=== PATIENT | female | born 1980 | race Two or more races ===

== ENCOUNTER 2019-05-19 18:26 | Emergency (ER) | payer MEDICAID ==
[~2019-05-19] VITALS: Ht 167.6 cm; Wt 79.4 kg
[~2019-05-19 18:26] MED LIST: TRAM300T15
[2019-05-19] MEDS ORDERED: IOHEXOL 350 MG/ML 100ML IJ ONE (19:04)
[2019-05-19 20:20] VITALS: BP 121/69
[2019-05-19 20:59] LABS: Basophils # (auto) 0 uL; Eosinophils # (auto) 0.1 uL; Hemoglobin 12.7 g/dL (12.2-16.2); Lymphocytes # (auto) 2.2 uL
[2019-05-19 21:00] LABS: Basophils % (auto) 0.5 % (0.0-2.0); Eosinophils % (auto) 1.1 % (0.0-7.0); Hematocrit 39.2 % (36.0-46.0); Lymphocytes % (auto) 27.6 % (10.0-50.0); Mean Corpuscular Hemoglobin 25.7 pg (28.0-32.0); Mean Corpuscular Hgb Conc. 32.3 g/dL (32.0-36.0); Mean Corpuscular Volume 79.6 fL (80.0-100.0); Monocytes # (auto) 0.4 uL; Monocytes % (auto) 5.4 % (0.0-12.0); Neutrophils # (auto) 5.2 uL; Neutrophils % (auto) 65.4 % (37.0-80.0); Platelet Count (auto) 299 10^3/uL (140-450); Red Blood Cells 4.93 10^6/uL (4.0-5.20); Red Cell Distribution Width 14.7 % (11.8-14.3)
[2019-05-19 21:05] LABS: Albumin 3.7 g/dL (3.4-5.0); Calcium 9.1 mg/dL (8.5-10.1); Magnesium 2.6 mg/dL (1.6-2.6); Potassium 3.9 mmol/L (3.5-5.1)
[2019-05-19 21:08] LABS: BUN/Creatinine Ratio 20.5; Bilirubin, Total 0.1 mg/dL (0.2-1.0); Total Protein 7.4 g/dL (6.4-8.2)
== END 2019-05-19 22:54 | disposition home or self-care (01) ==
LOC: ER 18:26
DX: F41.9 Anxiety disorder, unspecified (principal); F43.9 Reaction to severe stress, unspecified; R25.3 Fasciculation; Z98.51 Tubal ligation status
CPT/HCPCS: 36415; 70450; 70486; 80053; 83036; 83735; 85025; 99284; Q9967

== ENCOUNTER 2020-10-13 12:42 | Emergency (ER) | payer MEDICAID ==
[~2020-10-13] VITALS: Ht 167.6 cm; Wt 68.0 kg
[2020-10-13 12:50] VITALS: BP 109/56
== END 2020-10-13 14:23 | disposition home or self-care (01) ==
LOC: ER 12:42
DX: S30.92XD Unspecified superficial injury of abdominal wall, subsequent encounter (principal); Z48.01 Encounter for change or removal of surgical wound dressing; Z98.51 Tubal ligation status; X58.XXXD Exposure to other specified factors, subsequent encounter

== ENCOUNTER 2021-02-27 16:57 | Emergency (ER) | payer MEDICAID ==
[~2021-02-27] VITALS: Ht 167.6 cm; Wt 81.6 kg
[2021-02-27 17:07] VITALS: BP 138/66
== END 2021-02-27 20:49 | disposition left against medical advice (07) ==
LOC: ER 16:57
DX: R51.9 Headache, unspecified (principal); Z53.21 Procedure and treatment not carried out due to patient leaving prior to being seen by health care provider
CPT/HCPCS: 70450; 81025

== ENCOUNTER 2021-09-04 08:51 | Emergency (ER) | payer MEDICAID ==
[~2021-09-04] VITALS: Ht 167.6 cm; Wt 81.6 kg
[2021-09-04 09:37] LABS: Basophils # (auto) 0 10 ^3/uL (0-0.2); Eosinophils # (auto) 0.1 10 ^3/uL (0-0.8); Eosinophils % (auto) 0.9 % (0.0-7.0); Mean Corpuscular Volume 78.4 fL (80.0-100.0); White Blood Cell 6.6 10^3/uL (4.4-10.8)
[2021-09-04 09:41] LABS: Basophils % (auto) 0.2 % (0.0-2.0); Hematocrit 38.3 % (36.0-46.0); Hemoglobin 12.9 g/dL (12.2-16.2); Lymphocytes # (auto) 1.1 10 ^3/uL (0.4-5.4); Lymphocytes % (auto) 17.4 % (10.0-50.0); Mean Corpuscular Hemoglobin 26.5 pg (28.0-32.0); Mean Corpuscular Hgb Conc. 33.8 g/dL (32.0-36.0); Monocytes # (auto) 0.5 10 ^3/uL (0-1.3); Monocytes % (auto) 7.9 % (0.0-12.0); Neutrophils # (auto) 4.8 10 ^3/uL (1.6-8.6); Neutrophils % (auto) 73.6 % (37.0-80.0); Red Blood Cells 4.88 10^6/uL (4.0-5.20); Red Cell Distribution Width 14.7 % (11.8-14.3)
[2021-09-04 10:14] VITALS: BP 112/66
[2021-09-04 10:39] LABS: Albumin 3.4 g/dL (3.4-5.0); Calcium 8.3 mg/dL (8.5-10.1); Potassium 3.6 mmol/L (3.5-5.1)
[2021-09-04 10:43] LABS: BUN/Creatinine Ratio 14.3; Bilirubin, Total 0.2 mg/dL (0.2-1.0); Total Protein 7.2 g/dL (6.4-8.2)
[2021-09-04] MEDS ORDERED: ONDA-144 PO (10:45)
[2021-09-04 11:02] LABS: Urine Bacteria NONE SEEN /hpf (None Seen); Urine Blood Negative /uL (Negative); Urine Mucus FEW (None Seen); Urine Specific Gravity 1.029 (1.001-1.035); Urine WBC 1 /hpf (0 - 5)
== END 2021-09-04 11:30 | disposition home or self-care (01) ==
LOC: ER 08:51
DX: K52.9 Noninfective gastroenteritis and colitis, unspecified (principal); Z79.899 Other long term (current) drug therapy
CPT/HCPCS: 36415; 80053; 81001; 83690; 85025

== ENCOUNTER 2023-05-12 08:02 | Emergency (ER) | payer MEDICAID ==
[~2023-05-12] VITALS: Ht 167.6 cm; Wt 86.9 kg
[~2023-05-12 08:02] MED LIST changes: +ONDA-144 PO
[2023-05-12 08:09] VITALS: BP 114/94; PULSE 90; RESP 18; O2SAT 98
[2023-05-12 09:41] LABS: Eosinophils # (auto) 0.1 10 ^3/uL (0-0.8); Lymphocytes # (auto) 1.6 10 ^3/uL (0.4-5.4); Mean Corpuscular Hgb Conc. 32.1 g/dL (32.0-36.0)
[2023-05-12 09:42] LABS: Basophils # (auto) 0 10 ^3/uL (0-0.2); Basophils % (auto) 0.6 % (0.0-2.0); Eosinophils % (auto) 1.7 % (0.0-7.0); Hematocrit 42.4 % (36.0-46.0); Hemoglobin 13.6 g/dL (12.2-16.2); Lymphocytes % (auto) 22.9 % (10.0-50.0); Mean Corpuscular Hemoglobin 25.8 pg (28.0-32.0); Mean Corpuscular Volume 80.5 fL (80.0-100.0); Monocytes # (auto) 0.3 10 ^3/uL (0-1.3); Neutrophils # (auto) 4.9 10 ^3/uL (1.6-8.6); Neutrophils % (auto) 69.8 % (37.0-80.0); Nucleated Red Blood Cells % 0.1 %; Red Blood Cells 5.27 10^6/uL (4.0-5.20); Red Cell Distribution Width 15.4 % (11.8-14.3)
[2023-05-12 09:48] LABS: Urine Bacteria FEW /hpf (None Seen); Urine Blood 3+ /uL (Negative); Urine Clarity HAZY (Clear); Urine Color Yellow (Yellow); Urine Mucus FEW (None Seen); Urine Protein, UAD 1+ (Negative); Urine Specific Gravity 1.024 (1.001-1.035); Urine Urobilinogen Normal (Negative); Urine WBC 32 /hpf (0 - 5); Urine pH 5.5 (5.0-8.0)
[2023-05-12 10:04] LABS: Alanine Aminotransferase 44 U/L (7-40); Albumin 4.3 g/dL (3.2-4.8); Alkaline Phosphatase 108 U/L (46-116); Anion Gap 6 (5-15); Aspartate Aminotransferase 28 U/L (13-40); BUN/Creatinine Ratio 10.4 (10.0-20.0); Bilirubin, Total 0.3 mg/dL (0.2-1.0); Blood Urea Nitrogen 7 mg/dL (9-23); Calcium 8.9 mg/dL (8.5-10.1); Carbon Dioxide 25 mmol/L (20-30); Chloride 104 mmol/L (98-107); Glucose 201 mg/dL (74-106); Sodium 135 mmol/L (136-145)
[2023-05-12] MEDS ORDERED: CIPR-173 PO (10:19)
[2023-05-12] MEDS ORDERED: CIPROFLOXACIN HCL 500 MG TAB PO SCH (22:00)
== END 2023-05-12 10:29 | disposition home or self-care (01) ==
LOC: ER 08:02
DX: N39.0 Urinary tract infection, site not specified (principal); Z98.890 Other specified postprocedural states; Z79.899 Other long term (current) drug therapy
CPT/HCPCS: 36415; 80053; 81001; 85025; 87086

== ENCOUNTER 2024-01-28 09:38 | Emergency (ER) | payer MEDICAID ==
[~2024-01-28] VITALS: Ht 167.6 cm; Wt 84.9 kg
[~2024-01-28 09:38] MED LIST changes: +CIPR-173 PO
[2024-01-28 10:44] VITALS: BP 123/70; PULSE 62; RESP 18; TEMP 98.3; O2SAT 98
[2024-01-28] MEDS: DOCUSATE SOD 100 MG CAP PO ONE (11:09)
[2024-01-28] MEDS ORDERED: NAPR-746 PO (11:28)
[2024-01-28] MEDS ORDERED: AUG875T PO (11:28)
== END 2024-01-28 11:34 | disposition home or self-care (01) ==
LOC: ER 09:38
DX: H61.22 Impacted cerumen, left ear (principal); R68.84 Jaw pain
CPT/HCPCS: 69210

== ENCOUNTER 2024-08-18 07:17 | Emergency (ER) | payer MEDICAID ==
[~2024-08-18] VITALS: Ht 167.6 cm; Wt 85.9 kg
[~2024-08-18 07:17] MED LIST changes: +AUG875T PO; +NAPR-746 PO
[2024-08-18 07:56] VITALS: BP 142/72; TEMP 98.2
[2024-08-18 07:58] VITALS: PULSE 96; RESP 16; O2SAT 96
[2024-08-18] MEDS ORDERED: PROM1SOL4 PO (08:34)
[2024-08-18] MEDS ORDERED: AZIT-43 PO (08:34)
[2024-08-18] MEDS ORDERED: BENZ100C97 PO (08:34)
[2024-08-18] MEDS ORDERED: GUAI600T78 PO (08:34)
--- NOTE | 2024-08-18 08:34 | ED.PDOC ---
SOB-HPI HPI Comments 44-year-old female with no pertinent MHx presents with a chief complaint of URI symptoms for the last three days. Complains of a productive cough with green phlegm, sore throat, nasal congestion in his not taking medication for the symptoms listed above. 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 Uvula midline. Moist mucous membranes), TMs Normal Neck: Full Range of Motion, Non-Tender, Normal, Normal Inspection Respiratory: Chest Non-Tender, Lungs Clear, No Accessory Muscle Use, No Respiratory Distress, Normal Breath Sounds Cardiovascular: No Edema, No JVD, No Murmur, No Gallop, Normal Peripheral Pulses, Regular Rate/Rhythm Breast Exam: Deferred Gastrointestinal: No Organomegaly, Non Tender, No Pulsatile Mass, Normal Bowel Sounds, Soft Genitalia: Deferred Pelvic: Deferred Rectal: Deferred Extremities: No calf tenderness, Normal capillary refill, Normal inspection, Normal range of motion, Non-tender, No pedal edema Musculoskeletal : Apperance: Normal Neurologic: Alert, No Motor Deficits, Normal Affect, Normal Mood, No Sensory Deficits Cerebellar Function: Normal Reflexes: Normal Skin: Dry, Normal Color, Warm Lymphatic: No Adenopathy Was a procedure done? Was a procedure done?: No Differential Dx Differential Diagnosis: Bronchitis, URI X-Ray, Labs, Meds, VS Vital Signs Date Time Temp Pulse Resp B/P (MAP) Pulse Ox O2 Delivery O2 Flow Rate FiO2 08/18/24 07:58 96 16 96 Room Air 08/18/24 07:56 98.2 87 20 142/72 (95) 97 98.2 08/18/24 07:38 16 96 Room Air* 0 21 08/18/24 07:35 97.9 96 16 126/48 (74) 96 X-Ray, Labs, Meds, VS Comment After ROS and physical examination patient agreed to empiric treatment. Patient is stable for discharge at this time. External notes reviewed. Test results and diagnostic imaging interpreted. All diagnostic findings, discharge care, education and instructions provided Follow-up with PCP in 2 to 3 days Patient verbalized understanding and agreed to treatment plan Vital signs stable, afebrile, no acute distress noted Patient ambulatory with strong steady gait Advised to return precautions for any new or worsening symptoms, return to ER immediately for re-evaluation Patient is aware that the purpose of this visit was for an acute medical emergency requiring emergent stabilization. Chronic conditions, including malignancies have not been ruled out. Patient is instructed to follow up with PCP as directed and discharge instructions for continued care and workup. If unable to arrange follow-up, patient is to return to the emergency department for reassessment. Patient (parent or legal guardian if applicable) was given verbal and written discharge instructions and acknowledges understanding. Time of 1ST Reevaluation: 08:30 Reevaluation 1ST: Improved Patient Education/Counseling: Diagnosis, Treatment Family Education/Counseling: Diagnosis, Treatment Departure 1 Departure Time of Disposition: 08:32 Impression: Primary Impression: Tonsillar exudate Additional Impression: Cough Qualified Codes: R05.1 - Acute cough Disposition: 01 HOME / SELF CARE / HOMELESS Condition: Fair e-Prescriptions Guaifenesin (Mucinex) 600 Mg Tab 1 TAB PO BID for 7 Days, #14 TAB 0 Refills Prov: MARCO A HERRERA NP 08/18/24 Promethazine-Dm (Promethazine Dm 6.25-15 mg/5Ml) 1 Crystal Crystal 5 ML PO TID for 7 Days, #105 ML 0 Refills Prov: MARCO A HERRERA NP 08/18/24 Benzonatate (Benzonatate) 100 Mg Cap 1 CAP PO TID for 10 Days, #30 CAP 0 Refills Prov: MARCO A HERRERA NP 08/18/24 Azithromycin (Azithromycin) 250 Mg Tab 250 MG PO DAILY MDD 500 for 5 Days, #6 TAB 0 Refills 2 TABLETS ORALLY ON DAY ONE, THEN 1 TABLET ORALLY DAILY FOR 4 DAYS Prov: MARCO A HERRERA NP 08/18/24 Critical Care Note Critical Care Time?: No Stability Stability form required: No Heart Score Heart Score: Heart Score Response (Comments) Value History N/A 0 EKG N/A 0 Age N/A 0 Risk Factors N/A 0 Troponin N/A 0 Total 0 MARCO A HERRERA NP Aug 18, 2024 08:34
== END 2024-08-18 08:40 | disposition home or self-care (01) ==
LOC: ER 07:17
DX: J03.90 Acute tonsillitis, unspecified (principal); R05.9 Cough, unspecified; Z98.51 Tubal ligation status

== ENCOUNTER 2024-09-14 07:29 | Emergency (ER) | payer MEDICAID ==
[~2024-09-14] VITALS: Ht 167.6 cm; Wt 85.9 kg
[~2024-09-14 07:29] MED LIST changes: +AZIT-43 PO; +BENZ100C97 PO; +GUAI600T78 PO; +PROM1SOL4 PO
[2024-09-14 07:59] VITALS: BP 144/61; PULSE 96; TEMP 97.7
[2024-09-14 09:44] VITALS: RESP 16; O2SAT 95
[2024-09-14] MEDS: IPRATROPIUM BROM 0.5 MG/2.5ML INH SOL NEB ONE (09:44)
[2024-09-14] MEDS: ALBUTEROL SULF 2.5 MG/0.5ML(0.5%) NEB SOLN NEB ONE (09:44)
--- NOTE | 2024-09-14 10:56 | DVH ---
CHEST RADIOGRAPH Indication: cough x 4 wks. Technique: Single frontal view of the chest was obtained Comparison: None FINDINGS: Lines and Tubes: None Lungs: No focal consolidation. Pleura: No effusion. No pneumothorax. Cardiomediastinal contours: Unremarkable Bones: No acute osseous abnormality. IMPRESSION: 1. No acute cardiopulmonary disease.
[2024-09-14] MEDS ORDERED: ALBU108A5 IN (10:57)
[2024-09-14] MEDS ORDERED: METH4PAK PO (10:57)
--- NOTE | 2024-09-14 10:57 | ED.PDOC ---
SOB-HPI HPI Comments 44-year-old with a pertinent MHx presents with a chief complaint of URI symptoms for the last two days associated with an asthma exacerbation. 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 History Family History Family History: Reviewed,noncontributory to illness, No family hx of DM, No family hx of HTN Social History Smoker: Non-Smoker Alcohol: Denies ETOH Use Drugs: Denies Drug Use Lives In: Home All Other Systems: Reviewed and Negative (Per HPI) Physical Exam General Appearance: No Apparent Distress, Normal HEENT: Normal ENT Inspection, Pharynx Normal, TMs Normal Neck: Full Range of Motion, Non-Tender, Normal, Normal Inspection Respiratory: No Accessory Muscle Use, No Respiratory Distress, Wheezing Cardiovascular: No Edema, No JVD, No Murmur, No Gallop, Normal Peripheral Pulses, Regular Rate/Rhythm Breast Exam: Deferred Gastrointestinal: No Organomegaly, Non Tender, No Pulsatile Mass, Normal Bowel Sounds, Soft Genitalia: Deferred Pelvic: Deferred Rectal: Deferred Extremities: No calf tenderness, Normal capillary refill, Normal inspection, Normal range of motion, Non-tender, No pedal edema Musculoskeletal : Apperance: Normal Neurologic: Alert, auxiliary operator II-XII nml as Tested, No Motor Deficits, Normal Affect, Normal Mood, No Sensory Deficits Cerebellar Function: Normal Reflexes: Normal Skin: Dry, Normal Color, Warm Lymphatic: No Adenopathy Was a procedure done? Was a procedure done?: No Differential Dx Differential Diagnosis: Asthma, Bronchitis, URI X-Ray, Labs, Meds, VS Vital Signs Date Time Temp Pulse Resp B/P (MAP) Pulse Ox O2 Delivery O2 Flow Rate FiO2 09/14/24 09:44 16 95 Room Air* 0 21 09/14/24 07:59 96 18 97 Room Air 09/14/24 07:59 97.7 96 18 144/61 (88) 97 97.7 09/14/24 07:40 97.7 96 18 144/61 (88) 97 97.7 09/14/24 07:39 Room Air* 0 21 X-Ray, Labs, Meds, VS Comment Patient presents with cough and expiratory wheezing Exacerbation likely in the setting of cold weather and URI Differentials considered but not limited to: PNA, bronchiolitis, Foreign body airway obstruction, GERD. Chest X-Ray While in the ED, the patient was treated with Albuterol and Atrovent On reevaluation symptoms improved with treatment in the ED. Vital signs and exam reassuring. Lungs clear no wheezing. No labored breathing. No signs of respiratory distress. Patient was prescribed a short course of steroids. Inhaler prescribed as needed. Strict return precautions were discussed. Follow up with PCP 2-3 days. Time of 1ST Reevaluation: 10:45 Reevaluation 1ST: Improved Patient Education/Counseling: Diagnosis, Treatment Family Education/Counseling: Diagnosis, Treatment Departure 1 Departure Time of Disposition: 10:56 Impression: Primary Impression: Asthma exacerbation Qualified Codes: J45.21 - Mild intermittent asthma with (acute) exacerbation Disposition: HOME / SELF CARE / HOMELESS Condition: Fair e-Prescriptions Guaifenesin (Mucinex) 600 Mg Tab 1 TAB PO BID for 7 Days, #14 TAB 0 Refills Prov: MARCO A HERRERA MEDICATION ADMINISTRATION PROFESSIONAL 09/14/24 Promethazine-Dm (Promethazine Dm 6.25-15 mg/5Ml) 1 Crystal Crystal 5 ML PO TID for 7 Days, #105 ML 0 Refills Prov: MARCO A HERRERA MEDICATION ADMINISTRATION PROFESSIONAL 09/14/24 Benzonatate (Benzonatate) 100 Mg Cap 1 CAP PO TID for 10 Days, #30 CAP 0 Refills Prov: MARCO A HERRERA MEDICATION ADMINISTRATION PROFESSIONAL 09/14/24 Amoxicillin & Pot Clavulanate (AUGMENTIN TABLET) 875 Mg Tb 875 MG PO BID for 7 Days, #14 TAB 0 Refills Prov: MARCO A HERRERA MEDICATION ADMINISTRATION PROFESSIONAL 09/14/24 Methylprednisolone (Medrol Dosepak) 4 Mg Ruperto 4 MG PO UD for 7 Days, #21 TAB 0 Refills UAD Prov: MARCO A HERRERA MEDICATION ADMINISTRATION PROFESSIONAL 09/14/24 Albuterol Sulfate (Albuterol Sulfate Hfa) 108 Mcg/Act Aer 108 MCG IN Q6HP PRN for 30 Days, #1 AER 0 Refills Prov: MARCO A HERRERA NP 09/14/24 Critical Care Note Critical Care Time?: No Stability Stability form required: No Heart Score Heart Score: Heart Score Response (Comments) Value History N/A 0 EKG N/A 0 Age N/A 0 Risk Factors N/A 0 Troponin N/A 0 Total 0 MARCO A HERRERA NP Sep 14, 2024 10:57
== END 2024-09-14 11:06 | disposition home or self-care (01) ==
LOC: ER 07:29
DX: J45.909 Unspecified asthma, uncomplicated (principal); Z98.890 Other specified postprocedural states
CPT/HCPCS: 71045; 94640